=== PATIENT | female | born 1995 | race African-American/Black ===

== ENCOUNTER 2017-02-19 20:10 | Emergency (ER) | payer BC, MEDICAID ==
[~2017-02-19] VITALS: Ht 170.2 cm; Wt 53.5 kg
[~2017-02-19 20:10] MED LIST: BACTRIM DS TAB1 EAC1 ORAL; COLACE100 MG ORAL; KEFLEX500 MG ORAL; NKM; NORCO 5-325 TA1 EACH ORAL; VICODIN 5-5001 EACH PO
[2017-02-19 20:43] VITALS: BP 120/77
[2017-02-19] MEDS ORDERED: IBUPROFEN600 MG ORAL (21:48)
[2017-02-19 22:05] VITALS: BP 127/83
[2017-02-19 22:10] VITALS: BP 127/83
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
== END 2017-02-19 22:10 | disposition home or self-care (01) ==
LOC: EMR 20:58
DX: S00.83XA Contusion of other part of head, initial encounter (principal); S80.01XA Contusion of right knee, initial encounter; V43.62XA Car passenger injured in collision with other type car in traffic accident, initial encounter; Y92.410 Unspecified street and highway as the place of occurrence of the external cause
CPT/HCPCS: 70450; 99284

== ENCOUNTER 2017-10-15 22:56 | Emergency (ER) | payer BC, MEDICAID ==
[~2017-10-15] VITALS: Ht 170.2 cm; Wt 52.2 kg
[~2017-10-15 22:56] MED LIST changes: +IBUPROFEN600 MG ORAL
[2017-10-15 23:10] VITALS: BP 118/76
[2017-10-15] MEDS ORDERED: Bacitracin Oint UD TOPIC ONE ×2 (23:29→23:30)
--- NOTE | 2017-10-15 23:42 | Emergency Room Report ---
History of Present Illness General Chief Complaint: Upper Extremity Injury Source: Patient Present Illness HPI Is a 22-year-old female who is right-hand dominant. She presents with chief complaint of left elbow pain. She fell yesterday and was seen at [place]. Her mom had called the ER earlier today. I spoke with her on the phone. I also spoke with the patient. Mom initially said that her daughter had a broken bone and the bone is sticking outside of the elbow. Patient was only given a sling and mom was asking to see we can put her in a cast. Since the history was incongruent with normal protocol, I told them to come into the hospital to be evaluated. Patient has been moving her arm. No further trauma. No fever chills but no nausea no vomiting. Pain is well-controlled. Allergies: Coded Allergies: No Known Allergies (Unverified , 10/15/17) Patient History Past Medical History: see triage record, old chart reviewed Past Surgical History: none Pertinent Family History: none Social History: Denies: smoking Last Menstrual Period: 2 weeks ago Now: No Immunizations: UTD Reviewed Nursing Documentation: PMH: Agreed; PSxH: Agreed Nursing Documentation-PMH Past Medical History: No Stated History Review of Systems Eye: Denies: eye pain, blurred vision ENT: Denies: ear pain, nose congestion, throat swelling Respiratory: Denies: cough, shortness of breath Cardiovascular: Denies: chest pain, palpitations Gastrointestinal: Denies: abdominal pain, diarrhea, nausea, vomiting Musculoskeletal: Reports: joint pain; Denies: back pain Skin: Denies: rash Neurological: Denies: headache, numbness Endocrine: Denies: increased thirst, increased urine Hematologic/Lymphatic: Denies: easy bruising All Other Systems: negative except mentioned in HPI Physical Exam Vital Signs Date Time Temp Pulse Resp B/P (MAP) Pulse Ox O2 Delivery O2 Flow Rate FiO2 10/15/17 22:58 98.2 88 16 112/71 98 Room Air 98.2 vitals normal Sp02 EP Interpretation: reviewed, normal General Appearance: well appearing, no apparent distress, alert Head: normocephalic, atraumatic Eyes: bilateral eye PERRL, bilateral eye EOMI ENT: hearing grossly normal, normal pharynx Neck: full range of motion, supple, no meningismus Respiratory: chest non-tender, lungs clear, normal breath sounds Cardiovascular #1: regular rate, rhythm, no murmur Gastrointestinal: normal bowel sounds, non tender, no mass, no organomegaly, no bruit, non-distended Musculoskeletal: back normal, gait/station normal, normal range of motion, other - abrasion to left elbow. TTP over radial head. Psychiatric: mood/affect normal Skin: warm/dry Procedures Splinting Splinting : Consent: Verbal Location: left elbow Hand-Made Type: plaster Splint: posterior long Pre-Proc Neuro Vasc Exam: normal Post-Proc Neuro Vasc Exam: normal Patient Tolerated: Well Complications: None Medical Decision Making Diagnostic Impression: Primary Impression: Radial head fracture, closed Qualified Codes: S52.125A - Nondisplaced fracture of head of left radius, initial encounter for closed fracture ER Course Patient has a close fracture of the radial head. She brought copies of the x- rays with her. There is no dislocation. Is not an open fracture. I placed into a splint and sling. We'll have her follow-up with her doctor for referral to see orthopedic doctor. Patient reassured. Last Vital Signs Date Time Temp Pulse Resp B/P (MAP) Pulse Ox O2 Delivery O2 Flow Rate FiO2 10/15/17 23:10 98.2 76 16 118/76 99 Room Air 98.2 Status: improved Disposition: HOME, SELF-CARE Condition: Stable Additional Instructions: Wear your sling. Ice pack area. Follow-up your doctor in 7 days. You will need a referral to see an orthopedic doctor. Return if worse. MUKUL GILLESPIE M.D. Oct 15, 2017 23:42
[2017-10-16 00:03] VITALS: BP 118/76
== END 2017-10-16 00:03 | disposition home or self-care (01) ==
LOC: EMR 23:17
DX: S52.125A Nondisplaced fracture of head of left radius, initial encounter for closed fracture (principal); W19.XXXA Unspecified fall, initial encounter; Y92.9 Unspecified place or not applicable
CPT/HCPCS: 29105; 99283